=== PATIENT | male | born 1960 | race Caucasian/White ===

== ENCOUNTER 2018-07-16 09:06 | Outpatient (CLI) | payer SELFPAY ==
[2018-07-16 09:39] LABS: Abs Immature Grans 0.01 k/cumm (0.0-0.09); Absolute Basophil Count 0.03 k/cumm (0.0-0.2); Absolute Lymphocyte Count 1.27 k/cumm (1.2-3.4); Absolute Monocyte Count 0.35 k/cumm (0.11-0.7); Absolute Neutrophil Count 3.21 k/cumm (1.2-6.7); Basophils % 0.6; HCT 44.7 % (40.0-50.0); HGB 14.9 g/dL (13.5-17.5); Immature Grans % 0.2; Lymphocytes % 25.6; Mean Corp. HGB Concentration 33.3 g/dL (32.0-36.0); Mean Corpuscular Hemoglobin 29.8 pg (27.0-33.0); Mean Corpuscular Volume 89.4 fL (80-95); Mean Platelet Volume 9.8 fL (8.0-11.0); Neutrophils % 64.6; Platelet Count 129 x1000/uL (130-400); RBC Distribution Width 13.2 % (11.8-14.1); White Blood Cell Count 4.97 k/cumm (4.4-10.8)
== END 2018-07-16 09:26 ==
PROVIDERS: PCP Emergency Medicine; Visit Provider Emergency Medicine
DX: D69.6 Thrombocytopenia, unspecified (principal)
CPT/HCPCS: 36415; 85025

== ENCOUNTER 2019-12-09 01:36 | Outpatient (CLI) | payer SELFPAY ==
[2019-12-09 17:08] LABS: Abs Immature Grans 0.01 k/cumm (0.0-0.09); Absolute Basophil Count 0.04 k/cumm (0.0-0.2); Absolute Eosinophil Count 0.17 k/cumm (0.0-0.7); Absolute Lymphocyte Count 1.66 k/cumm (1.2-3.4); Basophils % 0.6; Eosinophils % 2.5; HCT 42.6 % (40.0-50.0); HGB 14.7 g/dL (13.5-17.5); Immature Grans % 0.1 %; Lymphocytes % 24.9; Mean Corp. HGB Concentration 34.5 g/dL (32.0-36.0); Mean Corpuscular Hemoglobin 30.4 pg (27.0-33.0); Mean Corpuscular Volume 88.2 fL (80-95); Mean Platelet Volume 9.8 fL (8.0-11.0); Neutrophils % 62.9; Platelet Count 146 x1000/uL (130-400); RBC 4.83 m/cumm (4.50-6.00); RBC Distribution Width 13.2 % (11.8-14.1); White Blood Cell Count 6.68 k/cumm (4.4-10.8)
[2019-12-13 09:16] LABS: PSA, Screening 1.5 ng/mL (0.0-4.5)
== END 2019-12-09 01:56 ==
PROVIDERS: PCP Emergency Medicine; Visit Provider Emergency Medicine
DX: D69.6 Thrombocytopenia, unspecified (principal); Z12.5 Encounter for screening for malignant neoplasm of prostate
CPT/HCPCS: 36415; 84153; 85025

== ENCOUNTER 2020-10-04 10:00 | Outpatient (CLI) | payer SELFPAY ==
[2020-10-04 12:51] LABS: HCT 42.9 % (40.0-50.0); HGB 14.6 g/dL (13.5-17.5); MCH 30.4 pg (27.0-33.0); MCV 89.2 fL (80-95); MPV 9.7 fL (8.0-11.0); Platelet Count 141 10^3/uL (130-400); RBC 4.81 10^6/uL (4.36-5.78); RDW 12.6 % (11.8-14.1); RDW-SD 41.7 fL; WBC 5.65 10^3/uL (4.4-10.8)
[2020-10-05 16:55] LABS: PSA, Screening 1.4 ng/mL (0.0-4.5)
== END 2020-10-04 10:01 | disposition home or self-care (01) ==
LOC: LOS 10:00
PROVIDERS: PCP Emergency Medicine; Visit Provider Emergency Medicine
DX: Z00.00 Encounter for general adult medical examination without abnormal findings (principal); D69.6 Thrombocytopenia, unspecified; Z80.42 Family history of malignant neoplasm of prostate; Z12.5 Encounter for screening for malignant neoplasm of prostate
CPT/HCPCS: 36415; 84153; 85027

== ENCOUNTER 2022-11-29 02:02 | Outpatient (CLI) | payer SELFPAY ==
[2022-11-29 08:54] LABS: HCT 42.8 % (40.0-50.0); HGB 14.7 g/dL (13.5-17.5); MCH 30.5 pg (27.0-33.0); MCHC 34.3 % (32.0-36.0); MCV 89 fL (80-95); MPV 9.4 fL (8.0-11.0); Platelet Count 142 10^3/uL (130-400); RBC 4.82 10^6/uL (4.36-5.78); RDW 12.7 % (11.8-14.1); RDW-SD 41.7 fL; WBC 5.46 10^3/uL (4.4-10.8)
[2022-11-29 09:08] LABS: Anion Gap 5.1 mmol/L (3-11); BUN 12 mg/dL (7-18); CO2 28.9 mmol/L (21.0-32.0); CREATININE 0.9 mg/dL (0.70-1.30); Calcium 8.3 mg/dL (8.5-10.1); Calculated LDL 126 mg/dL (<100); Chloride 100 mmol/L (98-107); Cholesterol 208 mg/dL (<200); Estimated GFR 95.97 (mL/min/1.73m2); Glucose 118 mg/dL (74-106); HDL Cholesterol 73 mg/dL (40-60); Potassium 4.6 mmol/L (3.5-5.1); Sodium 134 mmol/L (136-145); Triglyceride 48 mg/dL (<150)
[2022-11-29 20:06] LABS: PSA, Screening 1.7 ng/mL (<=4.5)
== END 2022-11-29 02:03 | disposition home or self-care (01) ==
PROVIDERS: PCP Nurse Practitioner Family; Visit Provider Nurse Practitioner Family
DX: D69.6 Thrombocytopenia, unspecified (principal); Z13.6 Encounter for screening for cardiovascular disorders; Z12.5 Encounter for screening for malignant neoplasm of prostate; R79.89 Other specified abnormal findings of blood chemistry
CPT/HCPCS: 36415; 80048; 80061; 84153; 85027

== ENCOUNTER 2024-11-22 14:16 | Outpatient (CLI) | payer MEDICARE, SELFPAY ==
[2024-11-22 11:46] LABS: Anion Gap 5.4 mmol/L (3-11); BUN 10 mg/dL (7-18); CO2 28.6 mmol/L (21.0-32.0); Calcium 8.6 mg/dL (8.5-10.1); Calculated LDL 106 mg/dL (<100); Chloride 96 mmol/L (98-107); Cholesterol 191 mg/dL (<200); Estimated GFR 102.25 (mL/min/1.73m2); Glucose 104 mg/dL (74-106); HDL Cholesterol 71 mg/dL (>or=40); Potassium 4.4 mmol/L (3.5-5.1); Sodium 130 mmol/L (136-145); Triglyceride 74 mg/dL (<150)
[2024-11-22 12:48] LABS: Hemoglobin A1C 5.6 % (<5.7)
[2024-11-22 18:06] LABS: PSA, Screening 1.8 ng/mL (<=4.5)
== END 2024-11-22 14:17 | disposition home or self-care (01) ==
LOC: LBO 14:18
PROVIDERS: PCP Nurse Practitioner Family; Visit Provider Nurse Practitioner Family
DX: Z13.1 Encounter for screening for diabetes mellitus (principal); Z13.6 Encounter for screening for cardiovascular disorders; Z12.5 Encounter for screening for malignant neoplasm of prostate
CPT/HCPCS: 36415; 80048; 80061; 84153; 83036

== ENCOUNTER → 2024-12-08 09:31 | Outpatient (BNVA) | payer MEDICARE, SELFPAY | PROVIDERS: PCP Nurse Practitioner Family; Referring Provider Nurse Practitioner Family; Visit Provider Physical Therapy Assistant | DX: Z12.11 Encounter for screening for malignant neoplasm of colon (principal) | CPT/HCPCS: S0285 ==

== ENCOUNTER 2024-12-23 10:09 | Day surgery (SDC) | payer MEDICARE, SELFPAY ==
[2024-12-23 10:51] VITALS: BP 116/81; PULSE 67; RESP 16; TEMP 36.2; O2SAT 97
[2024-12-23] MEDS: Lactated Ringers 1,000 ML 80 ML IV (11:04)
--- NOTE | 2024-12-23 11:34 | W.ANESPRE ---
General Info Date of Service Date Performed: 12/23/24 Height: 6 ft 2 in Weight: 77.4 kg Body Mass Index (BMI): 21.9 Surgical Procedure: Operation Date: 12/23/24 13:05 Proposed Procedure Side Surgeon kingsley Torres MD Meds Allergies and Home Medications Allergies Allergy/AdvReac Type Severity Reaction Status Date / Time Penicillins Allergy unknown Verified 12/23/24 10:50 Home Medication ?Medication ?Instructions ?Recorded clonazepam 1 mg tablet 1 mg PO QHS #90 tabs 10/21/24 oxybutynin chloride 5 mg 5 mg PO DAILY #90 tabs 10/21/24 tablet,extended release 24 hr bisacodyl 5 mg tablet,delayed 5 mg PO ONCE #4 tabs 12/08/24 release (Dulcolax (bisacodyl)) polyethylene glycol 3350 17 17 g PO ONCE #238 grams 12/08/24 gram/dose oral powder tamsulosin 0.4 mg capsule 0.4 mg PO DAILY 12/08/24 Current Visit Medications: Current Medications Generic Name Dose Route Start Last Admin Trade Name Freq PRN Reason Stop Dose Admin Ringer's Solution 1,000 mls @ 80 mls/hr 12/23/24 06:00 12/23/24 11:04 IV 01/21/25 23:59 80 mls/hr INFUSION MARY Administration IV Miscellaneous Supplies 1 each 12/23/24 06:00 Iv Access IV 01/21/25 23:59 DIRECTED MARY Sodium Biphosphate/Sodium Phosphate 133 - 266 ml 12/23/24 06:00 Na Phosphate Enema-Adult 133 Ml Btl [place] 12/23/24 23:59 DIRECTED PRN Sodium Chloride 0 ml 12/23/24 06:00 Normal Saline Flush 10 Ml Syr IV 01/21/25 23:59 PRN PRN Sodium Chloride 0 ml 12/23/24 06:00 Normal Saline 10 Ml Vial IJ 01/21/25 23:59 DIRECTED PRN Sterile Water 0 ml 12/23/24 06:00 Water,Injection,Sterile 10 Ml Vial IJ 01/21/25 23:59 DIRECTED PRN PFSH Active Problems Active Problems: Problem Status Onset Code Urinary frequency Acute R35.0 Lower urinary tract symptoms (LUTS) Acute R39.9 Varicose veins of left lower extremity Acute I83.92 Insomnia Acute G47.00 Family history of prostate cancer Acute Z80.42 Acquired thrombocytopenia Acute D69.6 Medical History Medical History Rosacea Basal cell carcinoma (BCC) in situ of skin (09/09/17) Removed by derm Surgical History Surgical History LASIK SURGERY Tobacco Smoking/Tobacco Use Status: Never Passive smoking exposure: Yes Second hand exposure: Yes Alcohol Alcohol Intake: current Alcohol intake frequency: 0-2 drinks per day Alcohol type: beer and wine Substance Use Substance use: Never Vital Signs and Lab Results Vital Signs Most Recent Vital Signs in EMR: Most Recent Vital Signs Temp Pulse Resp BP Pulse Ox 36.2 C L 67 16 116/81 97 12/23/24 10:51 12/23/24 10:51 12/23/24 10:51 12/23/24 10:51 12/23/24 10:51 Anesthesia Assessment and Plan Anesthesia History Personal History: No History of General Anesthesia Family History: No Family History of Anesthesia Complications Exercise Tolerance Exercise Tolerance: Metabolic Equivalents>4 Pertinent Negatives Pertinent Negatives: No Symptoms of GERD, No Major Cardiovascular Symptoms or Complaints, No Major Pulmonary Symptoms or Complaints and No History of CVA/TIA Cardiac & Pulmonary Exam Cardiac Exam: Normal S1/S2 Heart Sounds Pulmonary Exam: Clear Bilateral Breath Sounds Implantable Cardiac Device Does patient have a Pacemaker or an ICD?: No Airway Exam Known Difficult Airway: No Mallampati Class: 2 Mouth Opening: Normal (> 3cm) Thyromental Distance: Greater than 3 cm Neck Range of Motion: Full ROM Neck Circumference: Normal Teeth Condition: Normal Dentition ASA Classification ASA Score: ASA 2 Emergency Case?: No NPO Status NPO Status: NPO Clears >2 hours, Solids >8 hours Anesthesia Plan Resuscitation Status: Full Code Anesthesia Technique: General Anesthesia Airway Planned: Natural Airway Monitors Used: Standard Monitors
[2024-12-23 11:57] VITALS: BMI 21.9
--- NOTE | 2024-12-23 12:24 | W.PM.DSUDISC ---
Date of service: 12/23/24 Discharge Plan Disposition Patient Disposition: Home Condition: Stable Discharge Details Attending Provider: Aishwarya Torres Primary Care Provider: Ayad Coley Home Meds and New Rx's Prescriptions: Discontinued bisacodyl [Dulcolax (bisacodyl)] 5 mg tablet,delayed release (DR/EC) 5 mg PO ONCE Qty: 4 0RF Rx Instructions: Take per colonoscopy instructions provided by ordering providers office polyethylene glycol 3350 17 gram/dose powder 17 g PO ONCE Qty: 238 0RF Rx Instructions: Take per colonoscopy instructions provided by ordering providers office No Action oxybutynin chloride 5 mg tablet extended release 24hr 5 mg PO DAILY Qty: 90 3RF clonazepam 1 mg tablet 1 mg PO QHS Qty: 90 2RF Patient Comments: pt states taking 0.5mg to 1mg Rx Instructions: administer 30 minutes before bedtime tamsulosin 0.4 mg capsule 0.4 mg PO DAILY Discharge Instructions Instructions: Colon polyps Stand Alone Forms: Anesthesia Discharge Inst., Colonoscopy Post Instructions, Jose Mora (DSU) Activity:: Activity as Tolerated Diet:: As Tolerated Discharge Orders Discharge Orders: Discharge Order (Routine); Ordered 12/23/24 Ordered By: Aishwarya Torres DS: Diagnosis Discharge Diagnosis (1) Screening for colorectal cancer: Status: Acute Asessment and Plan: one small polyp seen and removed. The polyp is not cancer. Timing of next colonoscopy will depend on biopsy of the removed polyp. I suspect you will need another colonoscopy in 5 years. I will notify you in writing when the result of the polyp biopsy is in. You had very mild diverticulosis of the colon. This is a typical and common finding, and you have much less of it than average. continue your high fiber diet. (2) Polyp of ascending colon: Status: Acute (3) Diverticulosis: Status: Acute
--- NOTE | 2024-12-23 12:36 | BOWEL_PTH ---
PATIENT: Baltazar Booker V LOC: [facility] U#:[id number] AGE/SX: 64/M ROOM: RE12/23/[address]: Aishwarya Torres MD : 1960 BED: DIS: 12/23/2024 SPEC #: [id number] RECD: 12/23/24 13:27 STATUS: WOODY REQ #: [id number] GATITO: 12/23/24 12:[address]: Aishwarya Torres DEPT: Surgical Specimen RECD BY: Cindy Cummins ENTERED: 12/23/24 13:28 SP TYPE: Bowel OTHR DR: Ayad Coley, MANUFACTURING ENGINEERING MANAGER Tissues: 1 - BIOPSY BOWEL Procedures: GROSS AND MICRO LEVEL 4 Comments: [id number]
--- NOTE | 2024-12-23 12:47 | COLE_ITS ---
Date of service: 12/23/24 Time of Service: 12:47 Colonoscopy Report Date of procedure: 12/23/24 Pre-op diagnosis general: Screening for colorectal cancer Post-op diagnosis procedure note: same (1. ascending colon polyp. 2. sigmoid diverticulosis) Procedure: Colonoscopy with cold forceps polypectomy Surgeon: Aishwarya Torres Anesthesia Type: General:No Airway Estimated blood loss (mL): 1 Pathology: other (1. ascending colon polyp. ) Complications: None Disposition: same day Prep: Miralax/Dulcolax (Good to excellent prep) Procedure Description: Patient is here for routine screening colonoscopy. Informed consent was obtained and the patient was taken to the procedure area. The patient was placed in left lateral decubitus position on the procedure table. Timeout was performed. Anesthesia was induced. A lubricated colonoscope was inserted through the anus and passed to the cecum. The cecum was identified by the ileocecal valve and the appendiceal orifice. The scope was then slowly withd rawn and the colonic and rectal mucosa examined. Ascending colon 4mm sessile polyp excised with cold forceps. Sigmoid diverticulosis, mild. The scope was retroflexed in the anorectal junction examined. Uncomplicated internal hemorrhoids present. Assessment and plan; One colon polyp seen and excised. Timing of next colonoscopy will depend on path of polyp. 5 years if adenoma. 10 years if hyperplastic. High fiber diet for diverticulosis.
[2024-12-23 12:48] VITALS: BP 114/71; PULSE 62; RESP 16; TEMP 36.3; O2SAT 98
[2024-12-23 13:15] VITALS: BP 133/94; PULSE 66; RESP 16; TEMP 36.5; O2SAT 99
--- NOTE | 2024-12-23 13:21 | W.ANESPOSTOP ---
Postoperative Evaluation Date, Time and Location Date Performed: 12/23/24 Time Performed: 13:21 Patient Location: Day Surgery Unit Vital Signs Most Recent Imported Vital Signs: Most Recent Vital Signs Temp Pulse Resp BP Pulse Ox 36.3 C L 62 16 114/71 98 12/23/24 12:48 12/23/24 12:48 12/23/24 12:48 12/23/24 12:48 12/23/24 12:48 Pain Score Most Recent Pain Score: Most Recent Pain Score Pain Level 0 12/23/24 12:48 Assessment Mental Status: Awake (Alert & Oriented to Patient Baseline) Airway and Respiratory Function: Patent airway with normal (patient baseline) respiratory exam Cardiovascular Function: Hemodynamically Stable Hydration Status: Adequately Hydrated Nausea & Vomiting: No Nausea or Vomiting Pain: Pt. Denies Any Pain Peripheral Nerve Block: Patient did not receive a nerve block
== END 2024-12-23 13:43 | disposition home or self-care (01) ==
LOC: SUR 10:12
PROVIDERS: PCP Nurse Practitioner Family; Visit Provider Surgery
PROC: 0DJD8ZZ Inspection of Lower Intestinal Tract, Via Natural or Artificial Opening Endoscopic (ICD-10-PCS; CPT 45378; principal; 2024-12-23 13:00)
DX: Z12.11 Encounter for screening for malignant neoplasm of colon (principal); D12.2 Benign neoplasm of ascending colon; K57.30 Diverticulosis of large intestine without perforation or abscess without bleeding
CPT/HCPCS: 45380; 88305; J2704

== ENCOUNTER 2024-12-23 10:34 | Outpatient (CLI) | payer MEDICARE, SELFPAY ==
[2024-12-24 08:53] LABS: Lyme Ab w Rflx to Lyme Confirm Negative (Negative)
[2024-12-26 19:07] LABS: B. miyamotoi PCR Negative (Negative); Babesia divergens/MO-1 Negative (Negative); Ehrlichia muris eauclairensis Negative (Negative)
== END 2024-12-23 10:35 | disposition home or self-care (01) ==
LOC: LBO 10:36
PROVIDERS: PCP Nurse Practitioner Family; Visit Provider Nurse Practitioner Family
DX: T14.90XA Injury, unspecified, initial encounter (principal); W57.XXXA Bitten or stung by nonvenomous insect and other nonvenomous arthropods, initial encounter
CPT/HCPCS: 36415; 45380; 87798; 88305; 86618; J2704